=== PATIENT | female | born 1985 | race Caucasian/White ===

== ENCOUNTER 2016-07-10 09:39 | Emergency (ER) | payer OTHER ==
[2016-07-10 10:59] VITALS: BP 132/81
--- NOTE | 2016-07-10 11:44 | UC ---
UC General HPI - HPI Summary HPI Summary: complaint of heartburn and burning in her throat heartburn started approx 1 years ago- takes prilosec-- seeing [facility] for the last 5 days she has had constant right chest pain that extends from breast to RUQ pain radiates under her under right shoulder blade feels nauseous for approx 5 days- vomited 3x 2 days ago pain in RUQ which is worse after eating when having a BM feels pain in her entire abdomen and has cramps- last BM today - diarrhea difficulty urinating for approx 2 months denies fever but has had chills denies shortness of breath, palpitations, diaphoresis for the past year has had intermittent vaginal bleeding - History of Current Complaint Chief Complaint: UCAbdominalPain Stated Complaint: HEARTBURN/RT SHOULDER PAIN/METALIC TASTE IN MOUTH Time Seen by Provider: 07/10/16 11:32 Hx Obtained From: Patient Onset/Duration: Gradual Onset, Lasting Days, Still Present Timing: Constant Onset Severity: Moderate Current Severity: Moderate Associated Signs & Symptoms: Positive: Abdominal Pain, Diarrhea, Nausea, Vomiting - Allergy/Home Medications Allergies/Adverse Reactions: Allergies Allergy/AdvReac Type Severity Reaction Status Date / Time Fluoxetine [From Prozac] Allergy Severe HIVES AND Verified 07/10/16 10:49 THROAT CLOSES Home Medications: Home Medications Omeprazole CAP* [Prilosec CAP* 20 MG] 20 mg PO BID 07/10/16 [History Confirmed 07/10/16] PMH/Surg Hx/FS Hx/Imm Hx Previously Healthy: No - chornic heartburn,dysmennorhea Endocrine History Of: Denies: Diabetes, Thyroid Disease Cardiovascular History Of: Reports: Hypertension Denies: Cardiac Disorders, Pacemaker/ICD Respiratory History Of: Denies: COPD, Asthma GI/ History Of: Denies: Gastroesophageal Reflux, Ulcer, Renal Disease Neurological History Of: Denies: CVA, Dementia, Seizures Psychological History Of: Reports: Anxiety, Depression Other History Of: Negative For: Anticoagulant Therapy - Surgical History Surgical History: Yes Surgery Procedure, Year, and Place: TONSILLECTOMY 2000. D&C, HYSTEROSCOPY 2009 - Family History Known Family History: Positive: Hypertension - father Negative: Cardiac Disease, Diabetes Family History: NON CONTRIBUTORY - Social History Occupation: Employed Full-time Lives: With Family Alcohol Use: None Substance Use Type: None Smoking Status (MU): Former Smoker Type: Cigarettes Amount Used/How Often: 1 cig day When Did the Patient Quit Smoking/Using Tobacco: APR 2016 - Immunization History Most Recent Tetanus Shot: within last 10 years Review of Systems Constitutional: Chills Skin: Negative Eyes: Negative ENT: Negative Respiratory: Negative Cardiovascular: Chest Pain Gastrointestinal: Abdominal Pain, Vomiting, Diarrhea Genitourinary: Dysuria Neurovascular: Negative Musculoskeletal: Negative Neurological: Negative Psychological: Negative All Other Systems Reviewed And Are Negative: Yes Physical Exam Triage Information Reviewed: Yes Appearance: No Pain Distress, Well-Nourished, Obese Vital Signs: Initial Vital Signs Temp 98.5 F 07/10/16 10:52 Pulse 91 07/10/16 10:52 Resp 20 07/10/16 10:52 BP 132/81 07/10/16 10:52 Pulse Ox 98 07/10/16 10:52 Vital Signs Reviewed: Yes Eyes: Positive: Conjunctiva Clear ENT: Positive: Pharynx normal, TMs normal Neck: Positive: No Lymphadenopathy Respiratory: Positive: Lungs clear, Normal breath sounds, No respiratory distress, No accessory muscle use Cardiovascular: Positive: RRR, No Murmur, Pulses Normal Abdomen Description: Positive: Distended, Other: - RUQ tenderness,. Negative: CVA Tenderness (R), CVA Tenderness (L), Guarding Bowel Sounds: Positive: Present Musculoskeletal: Positive: No Edema Neurological: Positive: Alert Psychological Exam: Normal Skin Exam: Normal Course/Dx - Course Course Of Treatment: exam completed. ECG- NSR no ectopy. RUQ tenderness needs a higher level of care d/t pain and possible acute etiologies of pain - Differential Dx - Multi-Symptom Provider Diagnoses: RUQ tenderness, chest pain - Physician Notifications Discussed Patient Care With: Susi Kiran NP Time Discussed With Above Provider: 12:15 Discharge - Discharge Plan Condition: Stable Disposition: TRANS HIGHER LVL OF CARE FAC
== END 2016-07-10 12:29 | disposition short-term general hospital (02) ==
LOC: UCCORT 09:39
DX: R10.811 Right upper quadrant abdominal tenderness (principal); R07.9 Chest pain, unspecified; Z88.8 Allergy status to other drugs, medicaments and biological substances; Z87.891 Personal history of nicotine dependence
CPT/HCPCS: 81025; 87086; 93005; 99212; G0463

== ENCOUNTER 2016-11-28 10:12 | Emergency (ER) | payer OTHER ==
[2016-11-28 11:15] VITALS: BP 124/71
[2016-11-28] MEDS ORDERED: Ketorolac INJ* 60 MG/2 ML VIAL IM ONE (11:28)
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
== END 2016-11-28 11:55 | disposition home or self-care (01) ==
LOC: UCCORT 10:12
DX: M54.16 Radiculopathy, lumbar region (principal); Z88.8 Allergy status to other drugs, medicaments and biological substances; Z91.013 Allergy to seafood; Z87.891 Personal history of nicotine dependence
CPT/HCPCS: 96372; 99211; G0463; J1885

== ENCOUNTER 2016-12-01 12:57 | Emergency (ER) | payer OTHER ==
[2016-12-01 13:28] VITALS: BP 124/82
--- NOTE | 2016-12-01 13:51 | UC ---
Back Pain HPI - HPI Summary HPI Summary: complaint of lower back pain left lower lumbar started on the 4th after riding on a [place] and felt a sharp pain in her scacral spine and then pain inccreased seen her on 11/28/16- toradol, muscle relaxer and toradol pills using muscle relaxer at night since the pain in left lower lumbar/sacral area and raiteing to the [facility] of [facility] back non raditign down her leg sitting and leangion for longoria makes the pain wors elying doen relieves the ain had a massage without relief denies incontinecen, fever, unitnentional weight loss in the last year - History of Current Complaint Chief Complaint: UCBackPain Stated Complaint: LOW BACK PAIN Time Seen by Provider: 12/01/16 13:42 Hx Obtained From: Patient Hx Last Menstrual Period: 10/31/16 - Allergies/Home Medications Allergies/Adverse Reactions: Allergies Allergy/AdvReac Type Severity Reaction Status Date / Time Fluoxetine [From Prozac] Allergy Severe HIVES AND Verified 12/01/16 13:28 THROAT CLOSES Clonidine Allergy Anaphylatic Verified 12/01/16 13:28 Shock Shellfish Allergy Allergy Anaphylatic Verified 12/01/16 13:28 Shock PMH/Surg Hx/FS Hx/Imm Hx Previously Healthy: Yes Other History Of: Negative For: Anticoagulant Therapy - Surgical History Surgical History: Yes Surgery Procedure, Year, and Place: TONSILLECTOMY 2000. D&C, HYSTEROSCOPY 2009. Endoscopy, 2016 - Family History Known Family History: Positive: Hypertension - father Negative: Cardiac Disease, Diabetes Family History: NON CONTRIBUTORY - Social History Alcohol Use: None Substance Use Type: None Smoking Status (MU): Former Smoker Type: Cigarettes Amount Used/How Often: 1 cig day When Did the Patient Quit Smoking/Using Tobacco: APR 2016 - Immunization History Most Recent Influenza Vaccination: 2016 Most Recent Tetanus Shot: UTD Most Recent Pneumonia Vaccination: n/a Review of Systems Constitutional: Negative Skin: Negative Eyes: Negative ENT: Negative Respiratory: Negative Cardiovascular: Negative Gastrointestinal: Negative Genitourinary: Negative Motor: Negative Neurovascular: Negative Musculoskeletal: Other: - lower back pain Neurological: Negative Psychological: Negative All Other Systems Reviewed And Are Negative: Yes Physical Exam Triage Information Reviewed: Yes Appearance: Well-Nourished, Obese Vital Signs: Initial Vital Signs Temp 98.8 F 12/01/16 13:18 Pulse 64 12/01/16 13:18 Resp 14 12/01/16 13:18 BP 124/82 12/01/16 13:18 Pulse Ox 96 12/01/16 13:18 Vital Signs Reviewed: Yes Eyes: Positive: Conjunctiva Clear ENT: Positive: Pharynx normal, TMs normal Neck: Positive: Supple, No Lymphadenopathy Respiratory: Positive: Lungs clear, Normal breath sounds, No respiratory distress, No accessory muscle use Cardiovascular: Positive: RRR, No Murmur, Pulses Normal Abdomen Description: Positive: Nontender, No Organomegaly, Soft Bowel Sounds: Positive: Present Musculoskeletal: Positive: Other: - Spine have no noted deformities , Curvature of thoracic, and lumbar spine are within normal limits. Bony features of shoulders and hips are of equal height bilaterally. Posture is upright, and gait is smooth and normal. Spinous processes of T1-L5 palpable, midline, and non-tender; No step-offs. left loer lumbar and sacral muscle tenderness Flexion, extension, and rotation of the remaining spinal column is limited d/t pain. Patient cannot flex forward due to pain. Neurological: Positive: Alert, Other: - patellar reflexes intact SLR negative Psychological Exam: Normal Skin Exam: Normal Back Pain Course/Dx - Course Course Of Treatment: exam completed. x-ray negative for fracture. will send to PT for further evlaution and treatment. followup with PCP on 12/04/16 - Differential Dx/Diagnosis Differential Diagnosis/HQI/PQRI: Fracture, Strain, Sprain Provider Diagnoses: lower back pain Discharge - Discharge Plan Condition: Stable Disposition: HOME Prescriptions: traMADol TAB* [Ultram*] 50 mg PO Q6HR PRN #12 tab MDD 4 PRN Reason: Pain - Back Patient Education Materials: Low Back Strain (ED) Referrals: JACKIE Quinn [Primary Care Provider] - Additional Instructions: Start flexeril as directed. Do not drink alcohol or drive while taking flexeril. Please call physical therapy for further evaluation and treatment. Take ibuprofen for fever or pain. Increase fluids and rest. Please review your discharge instructions. If your symptoms do not improve please call your primary care provider or return to urgent care
[2016-12-01] MEDS ORDERED: Ketorolac INJ* 60 MG/2 ML VIAL IM ONE (14:19)
--- NOTE | 2016-12-01 14:33 | RAD ---
INDICATION: Sacrococcygeal injury. COMPARISON: There are no prior studies available for comparison. TECHNIQUE: 3 views of the sacrococcygeal spine were obtained. FINDINGS: The vertebra are in normal alignment. No fracture is seen. IMPRESSION: NO EVIDENCE FOR FRACTURE.
== END 2016-12-01 15:06 | disposition home or self-care (01) ==
LOC: UCCORT 12:57
DX: M54.5 Low back pain (principal); Z87.891 Personal history of nicotine dependence
CPT/HCPCS: 72220; 84702; 96372; 99212; G0463; J1885

== ENCOUNTER 2017-03-24 16:51 | Emergency (ER) | payer OTHER ==
--- NOTE | 2017-03-24 17:15 | UC ---
Skin Complaint HPI - HPI Summary HPI Summary: itchy skin x 1 day started Pen VK one day ago for Strep throat today having itchy skin , swollen face no wheezing or sob - History of Current Complaint Chief Complaint: UCAllergicReaction Time Seen by Provider: 03/24/17 17:03 Stated Complaint: POSSIBLE ALLERGIC REACTION Hx Obtained From: Patient Hx Last Menstrual Period: over a month ago Onset/Duration: Gradual Onset, Lasting Days - 1, Still Present Timing: Constant Onset Severity: Moderate Current Severity: Mild Location: Face Character: Swelling - and itchy Aggravating Factor(s): Other - pne vk Alleviating Factor(s): Antihistamines Associated Signs & Symptoms: Negative: Nausea, Vomiting, Numbness, Thirst, Diaphoresis, Weakness, Pallor, Shivering, Fever, Chills, Cough, Wheezing, Chest Pain, Hoarseness, Throat Tightening, Rash, Abdominal Pain - Allergy/Home Medications Allergies/Adverse Reactions: Allergies Allergy/AdvReac Type Severity Reaction Status Date / Time Fluoxetine [From Prozac] Allergy Severe HIVES AND Verified 03/24/17 17:01 THROAT CLOSES Clonidine Allergy Anaphylatic Verified 03/24/17 17:01 Shock Penicillin V Allergy Itching Verified 03/24/17 17:01 [From Penicil VK] Shellfish Allergy Allergy Anaphylatic Verified 03/24/17 17:01 Shock Home Medications: Home Medications Penicillin VK TAB* [Penicillin VK 250 mg Tab*] 500 mg PO TID 03/24/17 [History Confirmed 03/24/17] Review of Systems Constitutional: Negative Skin: Negative Eyes: Negative ENT: Negative Respiratory: Negative Cardiovascular: Negative Is Patient Immunocompromised?: No All Other Systems Reviewed And Are Negative: Yes PMH/Surg Hx/FS Hx/Imm Hx Cardiovascular History: Hypertension Other History Of: Negative For: Anticoagulant Therapy - Surgical History Surgical History: Yes Surgery Procedure, Year, and Place: TONSILLECTOMY 2000. D&C, HYSTEROSCOPY 2009. Endoscopy, 2016 - Family History Known Family History: Positive: Hypertension - father Negative: Cardiac Disease, Diabetes Family History: NON CONTRIBUTORY - Social History Alcohol Use: None Substance Use Type: None Smoking Status (MU): Former Smoker Type: Cigarettes Amount Used/How Often: 1 cig day When Did the Patient Quit Smoking/Using Tobacco: APR 2016 - Immunization History Most Recent Influenza Vaccination: 2016 Most Recent Tetanus Shot: UTD Most Recent Pneumonia Vaccination: n/a Physical Exam Triage Information Reviewed: Yes Appearance: Well-Appearing, No Pain Distress, Well-Nourished Vital Signs: Initial Vital Signs Temp 98.7 F 03/24/17 16:57 Pulse 98 03/24/17 16:57 Resp 16 03/24/17 16:57 BP 161/88 03/24/17 16:57 Pulse Ox 97 03/24/17 16:57 Vital Signs Reviewed: Yes Eyes: Positive: Conjunctiva Clear ENT: Positive: Normal ENT inspection, Hearing grossly normal, Pharynx normal Neck exam: Normal Neck: Positive: Supple, Nontender, No Lymphadenopathy Respiratory Exam: Normal Respiratory: Positive: Chest non-tender, Lungs clear, Normal breath sounds Cardiovascular: Positive: RRR, No Murmur, Pulses Normal Abdomen Description: Positive: Nontender, Soft Musculoskeletal Exam: Normal Course/Dx - Course Course Of Treatment: pt. will follow up with pcp or elevated bp - Diagnoses Provider Diagnoses: allergic reaction to antibiotics. HTN Discharge - Discharge Plan Condition: Stable Disposition: HOME Prescriptions: Azithromycin TAB* [Zithromax TAB (Z-JANY) 250 mg #6 tabs] 2 tab PO .TODAY, THEN 1 DAILY #1 jany Patient Education Materials: Antibiotic Medication Allergy (ED) Forms: *Work Release Referrals: JACKIE Quinn [Primary Care Provider] - If Needed Additional Instructions: stop Pen VK will have you start Zpack cont. with Benadryl every 4 to 6 hrs as needed for itch / rash
[2017-03-24 17:16] VITALS: BP 131/80
== END 2017-03-24 17:16 | disposition home or self-care (01) ==
LOC: UCCORT 16:51
DX: L29.9 Pruritus, unspecified (principal); T36.0X5A Adverse effect of penicillins, initial encounter; Y92.9 Unspecified place or not applicable; I10 Essential (primary) hypertension; Z90.710 Acquired absence of both cervix and uterus; Z88.8 Allergy status to other drugs, medicaments and biological substances; Z87.891 Personal history of nicotine dependence
CPT/HCPCS: 99212; G0463

== ENCOUNTER 2019-10-04 10:28 | Emergency (ER) | payer BC, OTHER ==
[2019-10-04] MEDS ORDERED: NS 0.9% 1000 ML** 1,000 ML IV ONE (10:37)
[2019-10-04] MEDS ORDERED: Ketorolac INJ* 15 MG/ML 1 ML VIAL IV PUSH ONE (10:37)
[2019-10-04] MEDS ORDERED: Ondansetron INJ* 2 MG/ML VIAL IV ONE ×2 (10:37→12:08)
[2019-10-04] MEDS ORDERED: Lidocaine 2% VISCOUS* 15 ML UDC PO ONE (11:00)
[2019-10-04] MEDS ORDERED: Al Hydrox/Mg Hydrox/Simet LIQ* 30 ML UDC PO ONE (11:00)
--- NOTE | 2019-10-04 11:00 | ED ---
Abdominal Pain/Male - HPI Summary HPI Summary: This pt is a 34 Y/O F presenting to [facility] with a CC of RUQ abdominal pain, radiated a 5/10 in severity, that occurs after eating and is described as burning, which has been present since 10/01/2019. She states that the pain starts in her RUQ and radiates into her epigastric region. She states that she has been nauseous and has had episodic vomiting after eating. She states that she has diarrhea as well and an intermittent headache. She reports that she has been using omeprazole which has not alleviated her pain. She states that eating aggravates her pain. She denies any fevers, chills, SOB, CP, and myalgia. She has no alleviating factors. She states that she has a PMHx of a gastric bypass surgery and barretts esophagus. - History of Current Complaint Chief Complaint: EDAbdPain Stated Complaint: RT SIDED ABD PAIN/VOMITING PER PT Time Seen by Provider: 10/04/19 10:30 Hx Obtained From: Patient Onset/Duration: Sudden Onset, Lasting Days - 1, Still Present Timing: Constant Severity Initially: Moderate Severity Currently: Moderate Pain Intensity: 5 Pain Scale Used: 0-10 Numeric Location: Discrete At: RUQ Radiates: No Aggravating Factor(s): Food Alleviating Factor(s): Nothing Associated Signs And Symptoms: Positive: Negative - chills, SOB, myalgia, Nausea , Vomiting, Diarrhea, Other - headache. Negative: Fever, Chest Pain - Allergies/Home Medications Allergies/Adverse Reactions: Allergies Allergy/AdvReac Type Severity Reaction Status Date / Time clonidine Allergy Anaphylatic Verified 10/04/19 10:35 Shock fluoxetine [From Prozac] Allergy Airway Verified 10/04/19 10:35 Obstruction Penicillins Allergy Itching Verified 10/04/19 10:35 shellfish derived Allergy Anaphylatic Verified 10/04/19 10:35 Shock Home Medications: Home Medications Fluticasone NASAL SPRAY 50MCG* [Flonase NASAL SPRAY 50MCG*] 2 spray BOTH NARES DAILY #1 btl 05/07/18 [Rx] Ibuprofen TAB* [Motrin TAB* 800 MG] 800 mg PO ONCE 05/07/18 [History Confirmed 05/07/18] Ondansetron ODT TAB* [Zofran 4 MG Odt TAB*] 4 mg PO Q8H PRN #12 tab.odt [Rx] PMH/Surg Hx/FS Hx/Imm Hx Previously Healthy: Yes Endocrine/Hematology History: Denies: Hx Anticoagulant Therapy, Hx Diabetes, Hx Thyroid Disease Cardiovascular History: Reports: Hx Hypertension Denies: Hx Pacemaker/ICD Respiratory History: Denies: Hx Asthma, Hx Chronic Obstructive Pulmonary Disease (COPD) GI History: Reports: Hx Gastroesophageal Reflux Disease, Other GI Disorders - barretts esophagus Denies: Hx Ulcer History: Denies: Hx Renal Disease Musculoskeletal History: Denies: Hx Scoliosis Neurological History: Denies: Hx Dementia, Hx Headaches, Hx Seizures, Other Neuro Impairments/ Disorders Psychiatric History: Reports: Hx Anxiety, Hx Depression Denies: Hx Substance Abuse - Cancer History Hx Chemotherapy: No Hx Radiation Therapy: No - Surgical History Surgical History: Yes Surgery Procedure, Year, and Place: TONSILLECTOMY 2000. D&C, HYSTEROSCOPY 2009. Endoscopy, 2017. Hysterectomy 2018 - Immunization History Immunizations Up to Date: Yes Infectious Disease History: No Infectious Disease History: Reports: Hx Hepatitis - HEP C Denies: Hx Clostridium Difficile, Hx Human Immunodeficiency Virus (HIV), Hx Shingles, Hx Tuberculosis, Hx Known/Suspected VRE, Hx Known/Suspected VRSA, History Other Infectious Disease, Traveled Outside the [place] in Last 30 Days - Family History Known Family History: Positive: Hypertension - father Negative: Cardiac Disease, Diabetes Family History: NON CONTRIBUTORY - Social History Occupation: Employed Full-time Lives: With Family Alcohol Use: None Hx Substance Use: No Substance Use Type: Reports: None Hx Tobacco Use: Yes Smoking Status (MU): Former Smoker Type: Cigarettes Amount Used/How Often: 1 cig day Review of Systems Negative: Fever, Chills Negative: Chest Pain Negative: Shortness Of Breath Positive: Abdominal Pain - RUQ, Vomiting, Diarrhea, Nausea Negative: Myalgia Negative: Headache All Other Systems Reviewed And Are Negative: Yes Physical Exam - Summary Physical Exam Summary: Constitutional: Well-developed, Well-nourished, Alert. (-) Distressed Skin: Warm, Dry HENT: Normocephalic; Atraumatic Eyes: Conjunctiva normal Neck: Musculoskeletal ROM normal neck. (-) JVD, (-) Stridor, (-) Tracheal deviation Cardio: Rhythm regular, rate normal, Heart sounds normal; Intact distal pulses; The pedal pulses are 2+ and symmetric. Radial pulses are 2+ and symmetric. (-) Murmur Pulmonary/Chest wall: Effort normal. (-) Respiratory distress, (-) Wheezes, (-) Rales Abd: Soft, Mild RUQ tenderness, (-) Distension, (-) Guarding, (-) Rebound Musculoskeletal: (-) Edema Lymph: (-) Cervical adenopathy Neuro: Alert, Oriented x3 Psych: Mood and affect Normal Triage Information Reviewed: Yes Vital Signs On Initial Exam: Initial Vitals Temp Pulse Resp BP Pulse Ox 98.5 F 74 16 144/103 98 10/04/19 10:33 10/04/19 10:33 10/04/19 10:33 10/04/19 10:33 10/04/19 10:33 Vital Signs Reviewed: Yes Procedures - Sedation Patient Received Moderate/Deep Sedation with Procedure: No Diagnostics - Vital Signs Vital Signs Temp Pulse Resp BP Pulse Ox 10/04/19 10:33 98.5 F 74 16 144/103 98 - Laboratory Result Diagrams: 10/04/19 11:00 10/04/19 11:00 Lab Statement: Any lab studies that have been ordered have been reviewed, and results considered in the medical decision making process. - Ultrasound Gallbladder US Ultrasound Interpretation Completed By: Radiologist Summary of Ultrasound Findings: Normal size liver with increased echogenicity consistent with hepatosteatosis. Negative for gallbladder pathology. ED physician has reviewed this report. Abdominal Pain Male Course/Dx - Course Course Of Treatment: Patient is here with right upper quadrant and epigastric pain that occurs after eating. Patient has a history of weight loss surgery and severe esophagitis with Gilbert's esophagus. Patient is alert and 40 mg of as omeprazole daily. Patient had a benign abdominal exam. Patient had laboratory performed grossly unremarkable. Patient had a negative ultrasound of her gallbladder. Patient is likely suffering from worsening esophagitis and was started on Maalox/Tums. Patient was encouraged to follow up with her primary care doctor and GI doctor in the next couple of days - Diagnoses Provider Diagnoses: Barretts esophagus, Esophagitis Discharge ED - Sign-Out/Discharge Documenting (check all that apply): Patient Departure - discharge - Discharge Plan Condition: Stable Disposition: HOME Prescriptions: Ondansetron ODT TAB* [Zofran 4 MG Odt TAB*] 4 mg PO Q8H PRN #12 tab.odt PRN Reason: Vomiting Patient Education Materials: Gilbert Esophagus (ED), Esophagitis (ED) Referrals: Conner Ferguson MD [Primary Care Provider] - Additional Instructions: Try buying over the counter Maalox or Tums to help with your symptoms Stay hydrated as best as possible superintendent pressure your prescription for nausea medication Call your primary care physician on Sunday to set up an appointment this week Return to the ED if you have -Severe, unrelenting pain -Uncontrolled vomiting -Any other concerning symptoms - Billing Disposition and Condition Condition: STABLE Disposition: Home - Attestation Statements Document Initiated by Scribe: Yes Documenting Scribe: Santos Ochoa Provider For Whom Scribe is Documenting (Include Credential): Chandra Amin MD Scribe Attestation: Santos Sharma scribed for Chandra Amin MD on 10/04/19 at 1324. Scribe Documentation Reviewed: Yes Provider Attestation: The documentation as recorded by the Santos tirado accurately reflects the service I personally performed and the decisions made by Chandra brush MD Status of Scribe Document: Viewed
[2019-10-04 11:06] LABS: ABS Eosinophils 0.1 10^3/ul (0-0.6); ABS Monocytes 0.4 10^3/ul (0-0.8); Eosinophil % 1.5 %; Hematocrit 42 % (35-47); Hemoglobin 14.2 g/dL (12.0-16.0); Lymphocyte % 30.2 %; Mean Corpuscular HGB Conc 34 g/dL (31-36); Mean Corpuscular Hemoglobin 30 pg (27-31); Mean Corpuscular Volume 87 fL (80-97); Mean Platelet Volume 9.4 fL (7.4-10.4); Nucleated Red Blood Cells % 0.1; Platelet Count 163 10^3/uL (150-450); Red Blood Count 4.79 10^6 /uL (3.70-4.87); Red Cell Distribution Width 13 % (10-15); White Blood Count 6.5 10^3/uL (3.5-10.8)
[2019-10-04 11:28] LABS: ALT 11 U/L (7-52); AST 13 U/L (13-39); Albumin 4.1 g/dL (3.2-5.2); Albumin/Globulin Ratio 1.4 (1-3); Alkaline Phosphatase 64 U/L (34-104); Anion Gap 7 mmol/L (2-11); Blood Urea Nitrogen 20 mg/dL (6-24); CO2 Carbon Dioxide 25 mmol/L (22-32); Calcium 9.5 mg/dL (8.6-10.3); Chloride 105 mmol/L (101-111); EGFR African American 102.6 (>60); EGFR Non-African American 84.8 (>60); Glucose 108 mg/dL (70-100); Sodium 137 mmol/L (135-145); Total Protein 7.1 g/dL (6.4-8.9)
[2019-10-04 11:34] LABS: HCG Pregnancy < 0.60 mIU/mL
[2019-10-04 11:45] LABS: Urine Appearance Clear; Urine Bilirubin Negative (Negative); Urine Blood Negative (Negative); Urine Color Yellow; Urine Glucose Negative (Negative); Urine Ketones Negative (Negative); Urine Nitrite Negative (Negative); Urine Protein Negative (Negative); Urine Specific Gravity 1.021 (1.010-1.030); Urine Urobilinogen Negative (Negative)
[2019-10-04 12:26] VITALS: BP 130/88
== END 2019-10-04 12:31 | disposition home or self-care (01) ==
LOC: ED 10:28
DX: K22.70 Barrett's esophagus without dysplasia (principal); K20.9 Esophagitis, unspecified; R10.11 Right upper quadrant pain; Z87.891 Personal history of nicotine dependence
CPT/HCPCS: 36415; 76705; 80053; 81003; 83690; 84702; 85025; 96374; 99282; A9270-GY; J2405